=== PATIENT | male | born 1980 | race Caucasian/White ===

== ENCOUNTER 2021-12-15 05:47 | Observation (INO) | payer OTHER, SELFPAY ==
[2021-12-15] VITALS (20 sets, daily range): BP systolic 95–142; BP diastolic 64–81; PULSE 71–98; RESP 12–26; TEMP 36.3–39.4; O2SAT 93–96; BMI 27.8
--- NOTE | ~2021-12-15 | CT_ITS ---
EXAMINATION: CTA chest PE protocol DATE: 12/15/2021 08:26 INDICATION: Shortness of breath TECHNIQUE: Computed tomography angiography (CTA) of the chest was performed with 100 mL Omnipaque-350 intravenous contrast timed to evaluate the pulmonary arteries. Coronal maximum intensity projection 3D-reconstructions were created by the technologist. The dose-length product (DLP) was 348.28 mGy-cm. Automated exposure control and iterative reconstruction technique were employed. COMPARISON: 03/01/2011 FINDINGS: The pulmonary arteries are well-opacified. No pulmonary embolism is identified. There are p erihilar predominant opacities in the right upper and middle lobes. There are airspace opacities thro ughout much of the right lower lobe. There is chronic elevation of the left hemidiaphragm with mild p assive atelectasis. There is no pleural effusion or pneumothorax. The heart size is normal. There is right hilar and subcarinal lymphadenopathy. IMPRESSION: 1. Pneumonia of the right lung. 2. Right hilar and subcarinal lymphadenopathy, likely reactive. 3. No pulmonary embolus identified. Reviewed, dictated and finalized at location A.
--- NOTE | ~2021-12-15 | XR_ITS ---
EXAMINATION: XR chest 1V portable INDICATION: Shortness of breath TECHNIQUE: Portable AP chest at 0705 hours COMPARISON: 03/01/2011 FINDINGS: There is chronic elevation of the left hemidiaphragm with left basilar atelectasis. There a re perihilar airspace opacities of the right lung there is no pleural effusion or pneumothorax. Cardi omediastinal silhouette is stable. IMPRESSION: 1. Right perihilar airspace opacities, likely pneumonia. Recommend followup radiographs in 10-14 days after appropriate therapy to evaluate for improvement/resolution. Reviewed, dictated and finalized at location A. IMPRESSION: 1. Right perihilar airspace opacities, likely pneumonia. Recommend followup rad iographs in 10-14 days after appropriate therapy to evaluate for improvement/re solution.
--- NOTE | 2021-12-15 06:17 | ECG_ITS ---
Measurements Intervals [place] Rate: 96 P: 49 MI: 108 QRS: 73 QRSD: 118 T: -24 QT: 389 QTc: 494 Interpretive Statements SINUS RHYTHM WITH SHORT MI INTERVAL POSSIBLE LEFT ATRIAL ENLARGEMENT [-0.1mV P-WAVE IN V1/V2] MODERATE INTRAVENTRICULAR CONDUCTION DELAY [110+ ms QRS DURATION] NONSPECIFIC T-WAVE ABNORMALITY NO PREVIOUS ECG AVAILABLE FOR COMPARISON Electronically Signed On 12-15-2021 9:27:52 CDT by Terra Molina M.D.
--- NOTE | 2021-12-15 06:18 | ED.SOB ---
HPI - SOB/Dyspnea General Chief Complaint: Shortness of Breath/Dyspnea <Irena Carrillo MD - Last Filed: 12/15/21 07:55> Stated Complaint: sob <Irena Carrillo MD - Last Filed: 12/15/21 07:55> Time Seen by Provider: 12/15/21 05:50 <Irena Carrillo MD - Last Filed: 12/15/21 07:55> Source: patient <Irena Carrillo MD - Last Filed: 12/15/21 07:55> Mode of arrival: ambulatory <Irena Carrillo MD - Last Filed: 12/15/21 07:55> Limitations: no limitations <Irena Carrillo MD - Last Filed: 12/15/21 07:55> History of Present Illness HPI Narrative: This is a 41 year old male with history of DM who presents for evaluation of COVID symptoms. He developed symptoms concerning for covid on saturday 12/09. He is complaining of fever, chills, headache, body aches, runny nose, sinus drainage, and cough since Friday. He has been taking nyquil and tylenol for his symptoms. He took 1000 mg tylenol 1 hour prior to arrival, and he took nyquil yesterday evening. He is reporting fever of 101 at home. He has some sob but no chest pain, nausea, vomiting or diarrhea. He reports having contact with ill person this past week, but they did not get tested for covid per patient. Patient has not been vaccinated for covid. <Irena Carrillo MD - Last Filed: 12/15/21 07:55> MD elicited complaint: shortness of breath <Irena Carrillo MD - Last Filed: 12/15/21 07:55> Related Data Home Medications: Home Medications Medication Instructions Recorded Confirmed atorvastatin 20 mg tablet 20 tablet PO HS 12/15/21 12/15/21 dapagliflozin 10 mg tablet 10 mg PO DAILY 12/15/21 12/15/21 ([facility]) <Irena Carrillo MD - Last Filed: 12/15/21 07:55> Allergies/Adverse Reactions: Allergies Allergy/AdvReac Type Severity Reaction Status Date / Time codeine Allergy Mild Abdominal Verified 12/15/21 09:32 Pain <Irena Carrillo MD - Last Filed: 12/15/21 07:55> Review of Systems Review of Systems: All systems reviewed & are unremarkable except as noted in HPI and below <Irena Carrillo MD - Last Filed: 12/15/21 07:55> Constitutional: Constitutional: Reports chills, Reports fatigue and Reports fever(s) <Irena Carrillo MD - Last Filed: 12/15/21 07:55> ENT: Reports nasal congestion and Denies sore throat <Irena Carrillo MD - Last Filed: 12/15/21 07:55> Cardiovascular: Cardiovascular: Denies chest pain <Irena Carrillo MD - Last Filed: 12/15/21 07:55> Respiratory: Respiratory: Reports chest congestion, Reports cough and Reports dyspnea <Irena Carrillo MD - Last Filed: 12/15/21 07:55> Gastrointestinal: Gastrointestinal: Denies abdominal pain, Denies nausea and Denies vomiting <Irena Carrillo MD - Last Filed: 12/15/21 07:55> Musculoskeletal: Musculoskeletal: Reports myalgias and Denies joint swelling <Irena Carrillo MD - Last Filed: 12/15/21 07:55> Neurologic: Denies syncope and Reports headache(s) <Irena Carrillo MD - Last Filed: 12/15/21 07:55> [facility] Past Medical History Medical History: Medical History Diabetes mellitus Lymphoma <Irena Carrillo MD - Last Filed: 12/15/21 07:55> Surgical History Surgical History: Surgical History Status post cervical disc replacement <Irena Carrillo MD - Last Filed: 12/15/21 07:55> Family History Family History: Family History (Updated 12/15/21 @ 12:43 by DEBRA Briceño) Mother Breast cancer Father Liver cancer Diabetes mellitus <Irena Carirllo MD - Last Filed: 12/15/21 07:55> Social History Social History: Social History (Updated 12/15/21 @ 12:50 by DEBRA Briceño) Social History: Patient currently lives with his marialuisa Chinchilla who will be his surrogate. They do have 1 dog which is a Chihuahua. He does have 3 daughters. He wish
[2021-12-15 06:36] LABS: Alveolar/Arterial O2 Gradient 53.3 mmHg; Base Excess ABG 3.3 mEq/l (+/-2.0); Carboxyhemoglobin 1.2 % THb (0-2.0); Fractional Inspired Oxygen 21 %; HCO3 ABG 25.7 mEq/l (22.0-26.0); Methemoglobin ABG 0.4 %THb (0-1.5); Oxygen Content ABG 20.1 %vol (16.0-22.0); Oxygen Saturation ABG 92.5 % (95.0-100.0); Oxyhemoglobin 91.4 % THb (90.0-100.0); PCO2 ABG 32.8 mmHg (35.0-45.0); PO2 ABG 57.2 mmHg (80.0-100.0); PO2 FiO2 Ratio Arterial Blood 2.72 %; Total Hemoglobin 15.7 g/dL (12.0-18.0)
[2021-12-15 06:37] LABS: Device ROOM AIR; Modified Allen's Test Pass; Site Drawn LEFT RADIAL; pH ABG 7.512 (7.350-7.450)
[2021-12-15] MEDS: KETOROLAC 30 MG/ML VIAL (*BKC) IV PUSH (07:00)
[2021-12-15] MEDS: SODIUM CHLORIDE 0.9% IV 1,000 ML 999 ML IV CONT ×2 (07:01→07:50)
[2021-12-15 07:03] LABS: Basophils Absolute Auto 0.1 K/mm3 (0.0-0.1); Basophils Percent Auto 0.4 % (0.2-1.2); Eosinophils Absolute Auto 0.1 K/mm3 (0-0.3); Eosinophils Percent Auto 0.6 % (0-4.4); Hematocrit 41.5 % (42.0-52.0); Hemoglobin 14.9 g/dL (14.0-18.0); Immature Granulocyte Absolute 0.16 K/mm3 (0.00-0.031); Immature Granulocyte Percent A 1.2 % (0-0.5); Lymphocytes Absolute Auto 0.71 K/mm3 (0.9-3.2); Lymphocytes Percent Auto 5.3 % (18.3-44.2); Mean Corpuscular HGB Conc 35.9 g/dl (32-36); Mean Corpuscular Hemoglobin 28.9 pg (26-34); Mean Corpuscular Volume 80.6 fl (80-100); Monocytes Absolute Auto 1.5 K/mm3 (0.1-0.6); Monocytes Percent Auto 11.4 % (2.6-8.5); Neutrophils Absolute Auto 10.9 K/mm3 (1.3-6.7); Neutrophils Percent Auto 81.1 % (45.5-73.1); Platelet Count Result 251 k/mm3 (150-375); Red Blood Count 5.15 M/mm3 (4.6-6.20); White Blood Count 13.4 K/mm3 (4.5-10.0)
[2021-12-15 07:07] LABS: Appearance Urine Slightly Cloudy (Clear); Bilirubin Urine 2+ (Negative); Blood Urine 1+ (Negative); Glucose Urine UA 2+ mg/dL (Negative); Ketones Urine 4+ mg/dL (Negative); Leukocyte Esterase Ur Negative LEU/UL (Negative); Nitrate Urine Negative (Negative); Protein Urine 3+ mg/dL (Negative); Specific Grav Ur 1.025 (1.001-1.035); pH Urine 5.5 (5.0-9.0)
[2021-12-15 07:14] LABS: Lactic Acid Reflex 1.2 mmol/L (0.7-2.0); Mucus Urine Heavy /lpf; Squamous Epithelial Cell Urine Rare /hpf (Few); WBC Urine 0-3 /hpf
[2021-12-15 07:15] LABS: INR 1.2; Prothrombin Time 14.5 Seconds (11.1-14.7)
[2021-12-15 07:16] LABS: Add Urine Microscopic? YES; Color Urine Dark Yellow (Yellow); Partial Thromboplastin Time 36.3 SECONDS (22.3-36.8)
[2021-12-15 07:19] LABS: Alanine Aminotransferase 33 U/L (6-50); Albumin Level 3.6 g/dL (3.5-5.1); Alkaline Phosphatase 147 U/L (38-126); Anion Gap 11 mmol/L (8-16); Aspartate Amino Transferase 37 U/L (17-59); Bilirubin,Total 1.4 mg/dL (0.2-1.3); Blood Urea Nitrogen 18 mg/dL (9-20); Calcium 8.1 mg/dL (8.4-10.2); Carbon Dioxide 26 mmol/L (22-30); Chloride 90 mmol/L (98-107); Estimated CRCL calculation 133 ml/min; Estimated Glomerular Filt Rate > 60; Glucose 271 mg/dL (65-110); Lipase 35 U/L (23-300); Magnesium 2.4 mg/dL (1.6-2.3); Potassium 3.4 mmol/L (3.4-5.0); Sodium 127 mmol/L (137-145)
[2021-12-15 07:46] LABS: Influenza A QL RT-PCR Negative (Negative); Influenza B QL RT-PCR Negative (Negative); SARS-CoV-2 RNA PCR Negative
[2021-12-15 07:48] LABS: CRP > 45.0 mg/dL (<1.0)
[2021-12-15 07:49] LABS: D Dimer 2.64 ug/mL (<0.48)
[2021-12-15] MEDS: ACETAMINOPHEN 500 MG TABLET 1000 MG PO ×2 (07:55→17:32)
--- NOTE | 2021-12-15 11:32 | PM.IMHP ---
H&P: HPI History of Present Illness Date/Time: 12/15/21 11:32 Chief Complaint: Flu like symptoms Narrative: Patient is a 41 year male with a past medical history of diabetes and lymphoma who presented to the ED with complaints of body aches, fevers, chills, sinus drainage, and cough. Patient has been having these symptom since 12/09/21. He has been self treating with nyquil and tylenol however has not gained any relief. He is reporting a temperature of 101 at home. He stated that it all began about a week ago, and he really thinks that he had covid. He was doing ok until he went down to visit his family. At that time, he got a severe headache that he described as the worst headache of his life, along with fevers and chills. He thought that he was going to be able to tough it out however, it only got worse. He has been experiencing shortness of breath, even at rest. He does also admit to a cough producing a clear thin sputum with a slight bloody tinge at times. He denies any chest pain, abdominal pain, nausea, vomiting, diarrhea, constipation, weakness, dizziness, lightheadedness, and visual disturbances. He did state that he noticed that his glucose was high at home, and stated that he normally runs between 130-150s, however, sometimes he will get into the two hundreds, but that is mostly after a big dinner. He cannot recall his last A1c. He stated that his headache has resolved, however, he is still feeling pretty fatigued. Patient is being admitted to the hospitalist service under observation Review of Systems Review of Systems: All systems reviewed & are unremarkable except as noted in HPI and below PMFSH Past Medical History Medical History Diabetes mellitus Lymphoma Surgical History Surgical History Status post cervical disc replacement Family History Family History (Updated 12/15/21 @ 12:43 by DEBRA Briceño) Mother Breast cancer Father Liver cancer Diabetes mellitus Social History Social History (Updated 12/15/21 @ 12:50 by DEBRA Briceño) Social History: Patient currently lives with his fianc?e Renée who will be his surrogate. They do have 1 dog which is a Chihuahua. He does have 3 daughters. He wishes to be full code at this time. Smoking packs per day: 0.5 Smoking cigarettes per day: 10.0 Years smoked: 15 Smoking pack-years: 7.50 Smoking status: Former smoker Smoking end date: 12/05/21 Additional smoking assessment comments: off and on smoking for about 30 years Alcohol intake: never Substance use: never Living arrangements: with family Occupation/Education: occupation Gender identity (if verbalized by the patient): Male Sexual Orientation (if Verbalized by the Patient): Straight or Heterosexual Spiritual care concerns: No Agree to blood products: Yes Meds Home Medications and Allergies Home Medications Medication Instructions Recorded Confirmed Type atorvastatin 20 mg tablet 20 tablet PO HS 12/15/21 12/15/21 History dapagliflozin 10 mg tablet 10 mg PO DAILY 12/15/21 12/15/21 History ([facility]) Allergies Allergy/AdvReac Type Severity Reaction Status Date / Time codeine Allergy Mild Abdominal Verified 12/15/21 09:32 Pain Vital Signs Vital Signs - 24 hr 12/15/21 06:41 12/15/21 06:46 12/15/21 06:41 Temperature 101.1 F H Pulse Rate 96 94 Respiratory Rate 16 17 Blood Pressure 122/81 Pulse Oximetry 93 Oxygen Delivery Room Air 12/15/21 06:42 12/15/21 07:05 12/15/21 07:39 Temperature Pulse Rate 97 98 87 Respiratory Rate 14 20 13 Blood Pressure 122/81 Pulse Oximetry Oxygen Delivery 12/15/21 07:53 12/15/21 08:00 12/15/21 08:36 Temperature Pulse Rate 86 88 83 Respiratory Rate 14 15 15 Blood Pressure Pulse Oximetry Oxygen Delivery 12/15/21 08:45
--- NOTE | 2021-12-15 11:32 | ADMGEN ---
This patient, Robi Jade, was admitted to [facility] Surg Room 313-01. Patient/family oriented to hospital policies and general routines including ID bracelet, bed and alarms, visiting hours, pain management, procedures, bathroom and other care routines, personal items, smoking policy, room service/diet, and visiting hours. Information on how to activate the Rapid Response Team has been discussed. Patient/Family are encouraged to report perceived risks to care and to ask questions if they do not understand what they are told or what they should do.
[2021-12-15 11:59] LABS: Glucose Point of Care 329 mg/dl (65-105)
[2021-12-15] MEDS: INSULIN ASPART (*BKC) 100 UNITS/ML SUB-Q ×2 (12:27→17:28)
[2021-12-15] MEDS: SODIUM CHLORIDE 0.9% IV 1,000 ML 100 ML IV CONT ×2 (12:27→22:57)
[2021-12-15 16:41] LABS: Glucose Point of Care 221 mg/dl (65-105)
[2021-12-16] MEDS: ACETAMINOPHEN 500 MG TABLET 1000 MG PO ×2 (02:30→09:21)
[2021-12-16 06:00] VITALS: BP 90/52; PULSE 74; RESP 16; TEMP 36.6; O2SAT 97
[2021-12-16 07:58] LABS: Glucose Point of Care 180 mg/dl (65-105)
[2021-12-16 08:39] LABS: Basophils Percent Auto 0.4 % (0.2-1.2); Eosinophils Absolute Auto 0.2 K/mm3 (0-0.3); Eosinophils Percent Auto 2.3 % (0-4.4); Hematocrit 40.5 % (42.0-52.0); Hemoglobin 13.6 g/dL (14.0-18.0); Lymphocytes Absolute Auto 1.48 K/mm3 (0.9-3.2); Lymphocytes Percent Auto 14.4 % (18.3-44.2); Mean Corpuscular HGB Conc 33.6 g/dl (32-36); Mean Corpuscular Hemoglobin 28.5 pg (26-34); Mean Corpuscular Volume 84.7 fl (80-100); Mean Platelet Volume 9.8 fl (7.4-10.4); Monocytes Absolute Auto 1.3 K/mm3 (0.1-0.6); Monocytes Percent Auto 12.5 % (2.6-8.5); Neutrophils Absolute Auto 7.1 K/mm3 (1.3-6.7); Neutrophils Percent Auto 69.4 % (45.5-73.1); Platelet Count Result 302 k/mm3 (150-375); Red Blood Count 4.78 M/mm3 (4.6-6.20); Red Cell Distribution Width 13.7 % (11.5-14.5); White Blood Count 10.3 K/mm3 (4.5-10.0)
[2021-12-16 08:50] LABS: Alanine Aminotransferase 32 U/L (6-50); Albumin Level 3.3 g/dL (3.5-5.1); Alkaline Phosphatase 135 U/L (38-126); Anion Gap 9 mmol/L (8-16); Aspartate Amino Transferase 37 U/L (17-59); Bilirubin,Total 1.1 mg/dL (0.2-1.3); Blood Urea Nitrogen 13 mg/dL (9-20); Calcium 7.8 mg/dL (8.4-10.2); Carbon Dioxide 27 mmol/L (22-30); Chloride 99 mmol/L (98-107); Cholesterol 99 mg/dL (0-200); Estimated CRCL calculation 133 ml/min; Estimated Glomerular Filt Rate > 60; Glucose 187 mg/dL (65-110); HDL Direct 15 mg/dL; Magnesium 2.5 mg/dL (1.6-2.3); Potassium 3.9 mmol/L (3.4-5.0); Sodium 135 mmol/L (137-145); Triglycerides 222 mg/dL (<150)
[2021-12-16 08:58] LABS: Hemoglobin A1C 9.8 % (<5.7)
[2021-12-16 09:00] LABS: LDL Cholesterol Direct 35 mg/dL
[2021-12-16] MEDS: SODIUM CHLORIDE 0.9% IV 1,000 ML 100 ML IV CONT (09:20)
--- NOTE | 2021-12-16 10:30 | PM.DS ---
DS: Admitting Diagnosis Discharge Date 12/16/21 1030 Admitting Diagnosis Pneumonia DS: Discharge Diagnosis Discharge Diagnosis (1) Community acquired pneumonia: Qualifiers: Laterality: right Lung location: unspecified part of lung Qualified Code(s): J18.9 - Pneumonia, unspecified organism Code(s): J18.9 - Pneumonia, unspecified organism Status: Acute Assessment and Plan: Chest ray shows right mid and lower lung pneumonia ABG shows respiratory alkalosis with hypoxia Continue Rocephin and azithromycin WBC elevated, and trending down to 10.3 Sputum culture ordered Blood cultures NGTD COVID negative Supplemental oxygen if needed (2) Hyponatremia: Code(s): E87.1 - Hypo-osmolality and hyponatremia Status: Acute Assessment and Plan: Na is 135 Received one liter of IV fluids Continue fluids at 100ml/hr trend labs Could be secondary to dehydration Adjust therapy as indicated (3) Diabetes mellitus: Code(s): E11.9 - Type 2 diabetes mellitus without complications Status: Acute Assessment and Plan: Glucose is 187 Urine exhibits signs of ketosis Hold home [facility] for now ISS high dose Accu chek ac/hs diabetic diet hypoglycemia protocol trend glucose adjust therapy as indicted (4) Hyperlipidemia: Code(s): E78.5 - Hyperlipidemia, unspecified Status: Acute Assessment and Plan: Lipid panel: triglycerides 222, cholesterol 99, LDL 35, HDL 15 Continue home atorvastatin LFT are ok (5) Fever: Code(s): R50.9 - Fever, unspecified Status: Acute Assessment and Plan: Temp 101.1, did go up to 103 last evening Tylenol on board probably secondary to PNA Continue to trend temperature Blood cultures shows NGTD DS: Summary Hospital Course Hospital Course: Patient is a 41 year old male with a past medical history of HLD, Diabetes, and lymphoma who presented to the hospital with flu like symptoms. He stated that he thought he had covid, however, symptoms were worsened which prompted the patient to go to the ED. He did exhibit a fever in the ED, and was given Tylenol which fever was reduced. WBC were also elevated at 13.4 and have reduced to 10.3. Chest xray did show right mid and lower pneumonia. Patient was started on IV ceftriaxone and azithromycin which did make him feel better. He does have a cough that is non productive. Glucose was elevated upon arrival, fluids and sliding scale was given and glucose has reduced to 187. A1c is 9.8. He is feeling better today, and is wanting to go home. He denies any shortness of breath, nausea, vomiting, headache, diarrhea, or constipation. His labs are stable. His temperature has been stable since the last elevated temperature. Education about not smoking has been given along with activity. Patient verbalized understanding. Time spent discussing smoking cessation with patient: 3 to 10 minutes Status at Discharge Functional status at discharge: independent ambulation Overall status at discharge: patient is progressing back to baseline Time Spent with Patient Time attestation: Total time spent providing and/or coordinating discharge services: 33 minutes Time spent: Greater than 30 minutes Specific discharge activities: Diagnostic testing, chart review, developing a treatment plan, education, care coordination documentation, physical exam, result review Exam Const: General: cooperative, comfortable, no acute distress, well developed, alert and awake Nutritional Appearance: well nourished Orientation/consciousness: patient oriented x3 Limitations: no limitations HENMT: Head: normal to inspection Ears: hearing grossly normal bilaterally General nose exam: Normal external nose present Mouth: Yes Normal oral and palatal mucosa present, Yes lip normal and Yes tongue normal Teeth and gingiva: abnormal tooth
--- NOTE | 2021-12-16 10:30 | P.DS_ITS ---
DS: Admitting Diagnosis Discharge Date 12/16/21 1030 Admitting Diagnosis Pneumonia DS: Discharge Diagnosis Discharge Diagnosis (1) Community acquired pneumonia: Qualifiers: Laterality: right Lung location: unspecified part of lung Qualified Code(s): J18.9 - Pneumonia, unspecified organism Code(s): J18.9 - Pneumonia, unspecified organism Status: Acute Assessment and Plan: * Chest ray shows right mid and lower lung pneumonia * ABG shows respiratory alkalosis with hypoxia * Continue Rocephin and azithromycin * WBC elevated, and trending down to 10.3 * Sputum culture ordered * Blood cultures NGTD * COVID negative * Supplemental oxygen if needed (2) Hyponatremia: Code(s): E87.1 - Hypo-osmolality and hyponatremia Status: Acute Assessment and Plan: * Na is 135 * Received one liter of IV fluids * Continue fluids at 100ml/hr * trend labs * Could be secondary to dehydration * Adjust therapy as indicated (3) Diabetes mellitus: Code(s): E11.9 - Type 2 diabetes mellitus without complications Status: Acute Assessment and Plan: * Glucose is 187 * Urine exhibits signs of ketosis * Hold home Farxiga for now * ISS high dose * Accu chek ac/hs * diabetic diet * hypoglycemia protocol * trend glucose * adjust therapy as indicted (4) Hyperlipidemia: Code(s): E78.5 - Hyperlipidemia, unspecified Status: Acute Assessment and Plan: * Lipid panel: triglycerides 222, cholesterol 99, LDL 35, HDL 15 * Continue home atorvastatin * LFT are ok (5) Fever: Code(s): R50.9 - Fever, unspecified Status: Acute Assessment and Plan: * Temp 101.1, did go up to 103 last evening * Tylenol on board * probably secondary to PNA * Continue to trend temperature * Blood cultures shows NGTD DS: Summary Hospital Course Hospital Course: Patient is a 41 year old male with a past medical history of HLD, Diabetes, and lymphoma who presented to the hospital with flu like symptoms. He stated that he thought he had covid, however, symptoms were worsened which prompted the patient to go to the ED. He did exhibit a fever in the ED, and was given Tylenol which fever was reduced. WBC were also elevated at 13.4 and have reduced to 10.3. Chest xray did show right mid and lower pneumonia. Patient was started on IV ceftriaxone and azithromycin which did make him feel better. He does have a cough that is non productive. Glucose was elevated upon arrival, fluids and sliding scale was given and glucose has reduced to 187. A1c is 9.8. He is feeling better today, and is wanting to go home. He denies any shortness of breath, nausea, vomiting, headache, diarrhea, or constipation. His labs are stable. His temperature has been stable since the last elevated temperature. Education about not smoking has been given along with activity. Patient verbalized understanding. Time spent discussing smoking cessation with patient: 3 to 10 minutes Status at Discharge Functional status at discharge: independent ambulation Overall status at discharge: patient is progressing back to baseline Time Spent with Patient Time attestation: Total time spent providing and/or coordinating discharge services: 33 minutes Time spent: Greater than 30 minutes Specific discharge activities: Diagnostic testing, chart review, developing a treatment plan, education, care coordination documentation, ph
[2021-12-16 12:07] LABS: Glucose Point of Care 232 mg/dl (65-105)
[2021-12-16 14:00] VITALS: BP 109/68; PULSE 90; RESP 16; TEMP 36.6; O2SAT 97
[2021-12-16 16:16] LABS: Glucose Point of Care 321 mg/dl (65-105)
[2021-12-16] MEDS: INSULIN ASPART (*BKC) 100 UNITS/ML SUB-Q (16:37)
[2021-12-16 16:57] VITALS: TEMP 36.4
--- NOTE | 2021-12-21 07:05 | PC.NURSE ---
Blood cx are negative.
== END 2021-12-16 17:37 | disposition home or self-care (01) ==
LOC: ANHED 09:52 → ANH3MEDSUR 13:59
PROVIDERS: Admitting Provider Internal Medicine; Emergency Provider General Practice; PCP Physician Assistant; Visit Provider Nurse Practitioner
DX: J18.9 Pneumonia, unspecified organism (principal); E87.1 Hypo-osmolality and hyponatremia; E11.9 Type 2 diabetes mellitus without complications; Z85.72 Personal history of non-Hodgkin lymphomas; Z87.891 Personal history of nicotine dependence; Z20.822 Contact with and (suspected) exposure to COVID-19; E78.5 Hyperlipidemia, unspecified
CPT/HCPCS: 36415; 36600; 71045; 71275; 80053; 80061; 81001; 82375; 82805; 82948; 83036; 83050; 83605; 83690; 83735; 85025; 85380; 85610; 85730; 86140; 87040; 87502; 93005; 96361; 96365; 96366; 96367; 96368; 96375; 99285; A9270; C9803; G0378; G0379; J0456; J0696; J1815; J1885; J7030; Q9967; U0003; U0005